=== PATIENT | female | born 1960 | race Caucasian/White ===

== ENCOUNTER 2021-08-22 11:35 | Inpatient (IN) ==
[2021-08-22 12:08] VITALS: BMI 26.5
[2021-08-22] MEDS ORDERED: NS 1,000 ML IV 1,000 ML ONE (12:41)
[2021-08-22] MEDS: NS 1,000 ML IV 1,000 ML IV SCH ×2 (12:50→21:35)
--- NOTE | 2021-08-22 12:50 | DR.CONSULT ---
CONSULT Consultation for Day of: Date: 08/22/21 Chief Complaint Chief Complaint: Right ankle infection History of Present Illness History of Present Illness: Mrs. Gray is a 61 yeat old female with a right ankle infection. This has been going on for a few days. She denies any trauma or any insect bite. She has some pain but worse with palpation. She had not had any treatment for this. She denies any f/c/n/v/sob/calf pain. The last time the patient ate was 6am. Past Medical History Past Medical History: Anemia and GERD Past Surgical History Surgical History: Hysterectomy Family History Family Medical History: Cancer Social History Does any household member use tobacco: No Alcohol Use: None Review of Systems Constitutional: See HPI Musculoskeletal: Leg Pain (Right ankle with a wound to the medial mal. This has erythema and edema which tracks proximally. Crepitus noted periwound. Draining purulence. Painful on palpation. The wound measures 3.0 cm x 3.0 cm and the base is fibrotic and necrotic. DP and PT pulses are diminished b/l. ) Skin: Wound (Right ankle wound. discussed above) Physical Exam Vital Signs: Temperature 97.4 F Pulse Rate 95 Respiratory Rate 20 Blood Pressure 178/79 O2 Sat by Pulse Oximetry 97 Plan (1) Infection of bone of right ankle: Status: Acute Plan: Mrs. Gray is a 61 yo female with a med mal wound infection. Plan: NPO now. Patient last ate at [address] right ankle and leg stat Recommend abx Patient would benefit from debridement Will discuss the case with Dr. Bingham. Please do not hesitate to contact me questions or concerns [facility] [phone]
--- NOTE | 2021-08-22 12:55 | DR.EXTPAIN ---
HPI Time seen Time Seen by Provider: 08/22/21 12:22 PCP Primary Care Physician: elisha odom Complaint/Symptoms Chief Complaint:: pt states " i was wearing a croc shoes without socks wednesday and i ended up with several blisters on my right foot. they have busted and now they are hurting." she states she saw her pcp this morning and was told to come here to see dr. araujo Self Treatment fo Chief Complaint: none Source History Provided: Patient Mode of arrival Mode of Arrival: Ambulatory Timing Onset of Chief Complaint: 08/20/21 PMH PMH Past Medical History: Yes Past Medical History: Anemia and GERD Past Surgical History: Yes Surgical History: Hysterectomy Past Surgical History Comment: colon surgery Family History History of Family Medical Conditions: Yes Family Medical History: Cancer Social History Does any household member use tobacco: No Alcohol Use: None Do you use any recreational Drugs:: No Lives Where: Home Infectious screening In the last 2 months have you had wt loss of >10#?: NO Have you had fever, night sweats or hemotysis?: No Have you traveled outside the country in the last 6 months?: No Isolation: Standard ROS Review of Systems Constitutional: No Symptoms Reported and See HPI; negative Fever, Weakness and Fatigue Eyes: No Symptoms Reported and See HPI ENTM: No Symptoms Reported and See HPI; negative Nose Discharge and Nose Congestion Respiratoy: No Symptoms Reported and See HPI; negative Moist Cough, Short of Breath and Wheezing Cardiovascular: No Symptoms Reported and See HPI; negative Chest Pain Gastrointestinal/Abdominal: No Symptoms Reported and See HPI; negative Abdominal Pain, Diarrhea and Vomiting Genitourinary: No Symptoms Reported and See HPI; negative Dysuria, Frequency and Hematuria Neurological: No Symptoms Reported and See HPI; negative Headache, Weakness and Dizziness Musculoskeletal: No Symptoms Reported, See HPI, Leg (RIGHT LEG PAIN AND REDNESS.), Ankle (RIGHT ANKLE ABSCESS AND PAIN.) and Foot (RIGHT FOOT SWELLING, REDNESS AND PAIN.) Integumentary: See HPI and Change in Color (REDNESS RT LEG, ANSCESS RIGHT ANKLE AND SWELLING RIGHT FOOT.); negative Juandice Hematologic/Lymphatic: No Symptoms Reported and See HPI; negative Easy Bruising Endocrine: No Symptoms Reported and See HPI; negative Increased Thirst and Increased Urine Psychiatric: No Symptoms Reported and See HPI All Other Systems: Reviewed and Negative PE Vital Signs Vitals: Temperature 97.4 F Pulse Rate 82 Respiratory Rate 17 Blood Pressure 127/62 O2 Sat by Pulse Oximetry 98 General Limitations: No Limitations General Appearance: Alert and In No Apparent Distress Head Head Exam: Normal Inspection Eyes Eye exam: Normal Appearance; negative Scleral Icterus and Conjunctival Injection ENT ENT Exam: Normal Exam, Normal Oropharynx, Normal External Ear Exam and TM's Normal Bilaterally Neck Neck Exam: Normal Inspection and Trachea Midline; negative Tenderness Chest Chest Inspection: Normal Inspection and Symmetric Chest Wall Rise; negative Ten derness Respiratory Respiratory Exam: Normal Lung Sounds Bilat; negative Accessory Muscle Use, Chest Wall Tenderness and Respiratory Distress Respiratory Exam: Bilateral: Clear to Auscultation Cardiovascular Cardiovascular Exam: Regular Rate, Normal Rhythm and Normal Heart Sounds; negative Systolic Murmur and Diastolic Murmur Abdominal Exam Abdominal Exam: Normal Inspection, Normal Bowel Sounds and Soft; negative Tenderness Extremities Extremities Exam: Normal Inspection, Tenderness (RIGHT ANKLE ANSCESS, REDNESS AND SWELLING AND RIGHT LEG TENDERNESS.), Normal Capillary Refill and Edema (SWELLING RIGHT FOOT AND REDNESS.) Back Back Exam: Normal Inspection; negative (R) CVA Tenderness and (L) CVA Tenderness Neurological Neurological Exam: Alert, Oriented X3 and CN II-XII Intact; negative Motor Sensory Deficit Psychiatric Psychiatric Exam: Normal Affect and Normal Mood Skin Skin Exam: Erythema Type of Lesion: Abscess (RIGHT ANKLE ABSCESS.) and Other (RIGHT LEG REDNESS. RT FOOT SWELLING AND REDNESS.) Description: Tenderness and Erythematous MDM Differential Diagnosis Differential Diagnosis: Other (CELLULITIS EIGHT LEG AND FOOT, ABSCESS RIGHT ANKLE.) COURSE Treatment Treatment: SEE ORDERS. Education/Counseling Education/Counseling: Patient Educated On: Diagnosis ROR Labs Reviewed Result Diagrams: 08/22/21 12:46 08/22/21 12:46 Laboratory: 08/22/21 13:19 Foot - Right Wound Gram Stain - Final WBC 14.5 X10^3/uL (3.6-10.0) H 08/22/21 12:46 RBC 4.27 X10^6/uL (3.5-5.4) 08/22/21 12:46 Hgb 10.7 g/dL (12.0-16.0) L 08/22/21 12:46 Hct 33.1 % (36.0-47.0) L 08/22/21 12:46 MCV 77.6 fL (80.0-100.0) L 08/22/21 12:46 MCH 25.0 pg (27.0-34.0) L 08/22/21 12:46 MCHC 32.2 g/dL (33.0-35.0) L 08/22/21 12:46 RDW 23.2 % (11.6-16.5) H 08/22/21 12:46 Plt Count 377 X10^3/uL (150.0-450.0) 08/22/21 12:46 Plt Count Comment Adequate (ADEQUATE) 08/22/21 12:46 MPV 7.9 fL (7.4-11.0) 08/22/21 12:46 Neut % (Auto) 89.5 % (42.0-75.0) H 08/22/21 12:46 Lymph % (Auto) 6.5 % (21.0-51.0) L 08/22/21 12:46 [place] % (Auto) 2.8 % (0.0-13.0) 08/22/21 12:46 Eos % (Auto) 0.0 % (0.9-2.9) L 08/22/21 12:46 Baso % (Auto) 1.2 % (0.2-1.0) H 08/22/21 12:46 Neut # (Auto) 13.0 x10^3/uL (2.2-4.8) H 08/22/21 12:46 Lymph # (Auto) 0.9 X10^3/uL (1.3-2.9) L 08/22/21 12:46 [place] # (Auto) 0.4 x10^3/uL (0.3-0.8) 08/22/21 12:46 Eos # (Auto) 0.0 x10^3/uL (0.0-0.2) 08/22/21 12:46 Baso # (Auto) 0.2 X10^3/uL (0.0-0.1) H 08/22/21 12:46 Absolute Nucleated RBC 0.0 /100WBC 08/22/21 12:46 Total Counted 100 08/22/21 12:46 Neutrophils % (Manual) 87 % (39-76) H 08/22/21 12:46 Lymphocytes % (Manual) 8 % (13-43) L 08/22/21 12:46 Monocytes % (Manual) 5 % (4-9) 08/22/21 12:46 Plt Morphology Comment Normal (NORMAL) 08/22/21 12:46 RBC Morphology Abnormal (NORMAL) A 08/22/21 12:46 Hypochromasia Slight A 08/22/21 12:46 Anisocytosis 2+ A 08/22/21 12:46 Microcytosis Slight A 08/22/21 12:46 Sodium 140 mmol/L (136-145) 08/22/21 12:46 Corrected Sodium 140 mmol/L (136-145) 08/22/21 12:46 Potassium 2.9 mmol/L (3.5-5.1) L* 08/22/21 12:46 Chloride 101 mmol/L (98-107) 08/22/21 12:46 Carbon Dioxide 30.8 mmol/L (21-32) 08/22/21 12:46 BUN 15 mg/dL (7-18) 08/22/21 12:46 Creatinine 0.62 mg/dL (0.55-1.02) 08/22/21 12:46 Est GFR (MDRD) Af Amer > 60 (>60) 08/22/21 12:46 Est GFR (MDRD) Non-Af > 60 (>60) 08/22/21 12:46 Glucose 114 mg/dL (65-99) H 08/22/21 12:46 Hemoglobin A1c 5.5 % 08/22/21 12:46 Calcium 9.2 mg/dL (8.5-10.1) 08/22/21 12:46 Corrected Calcium 10.0 mg/dL (8.5-10.1) 08/22/21 12:46 Total Bilirubin 0.40 mg/dL (0.2-1.0) 08/22/21 12:46 AST 15 Units/L (15-37) 08/22/21 12:46 ALT 35 Units/L (12-78) 08/22/21 12:46 Alkaline Phosphatase 78 Units/L (46-116) 08/22/21 12:46 Total Protein 7.7 g/dL (6.4-8.2) 08/22/21 12:46 Albumin 3.0 g/dL (3.4-5.0) L 08/22/21 12:46 Globulin 4.7 g/dL (2.5-4.5) H 08/22/21 12:46 Albumin/Globulin Ratio 0.6 Ratio (1.1-2.1) L 08/22/21 12:46 SARS CoV-2 RNA Rapid VLADISLAV Negative (NEGATIVE) 08/22/21 13:19 Tissue Pathology To follow 08/22/21 16:05 EKG Rate: 81 Rhythm: PVCs Block: None Hypertrophy: LAE ST: Normal and Nonsp Opioid Opioid Risk Tool Age ([place] box if 16-45): No History of Preadolescent Sexual Abuse: No Total: 0 Total Score Risk Category: Low Risk Copyright: Lit CABA predicting aberrant behaviors Instructions Forms: [facility]
[2021-08-22 13:01] LABS: BASOPHILS # (AUTO) 0.2 X10^3/uL (0.0-0.1); BASOPHILS % (AUTO) 1.2 % (0.2-1.0); HEMATOCRIT 33.1 % (36.0-47.0); HEMOGLOBIN 10.7 g/dL (12.0-16.0); LYMPHOCYTES # (AUTO) 0.9 X10^3/uL (1.3-2.9); LYMPHOCYTES % (AUTO) 6.5 % (21.0-51.0); MEAN CORPUSCULAR HGB CONC 32.2 g/dL (33.0-35.0); MEAN CORPUSCULAR VOLUME 77.6 fL (80.0-100.0); MEAN PLATELET VOLUME 7.9 fL (7.4-11.0); MONOCYTES # (AUTO) 0.4 x10^3/uL (0.3-0.8); MONOCYTES % (AUTO) 2.8 % (0.0-13.0); NEUTROPHILS % (AUTO) 89.5 % (42.0-75.0); PLATELET COUNT 377 X10^3/uL (150.0-450.0); RED BLOOD COUNT 4.27 X10^6/uL (3.5-5.4); RED CELL DISTRIBUTION WIDTH 23.2 % (11.6-16.5); WHITE BLOOD COUNT 14.5 X10^3/uL (3.6-10.0)
[2021-08-22 13:10] LABS: ALANINE AMINOTRANSFERASE 35 Units/L (12-78); ALKALINE PHOSPHATASE 78 Units/L (46-116); ASPARTATE AMINO TRANSFERASE 15 Units/L (15-37); BLOOD UREA NITROGEN 15 mg/dL (7-18); CALCIUM 9.2 mg/dL (8.5-10.1); CARBON DIOXIDE 30.8 mmol/L (21-32); CHLORIDE 101 mmol/L (98-107); COR NA(FOR HYPERGLY) 140 mmol/L (136-145); CREATININE 0.62 mg/dL (0.55-1.02); SODIUM 140 mmol/L (136-145); TOTAL PROTEIN 7.7 g/dL (6.4-8.2); eGFR NON BLACK RACES > 60 (>60)
[2021-08-22 13:28] LABS: ANISOCYTOSIS 2+; HYPOCHROMASIA SLIGHT; MICROCYTOSIS SLIGHT; PLATELET MORPHOLOGY COMMENT NORMAL (NORMAL)
[2021-08-22] MEDS ORDERED: VANCOMYCIN IV *PREMIX 1 G/200 ML BAG 1 G/200 ML PIGGYBACK IV ONE ×2 (13:36→13:45)
--- NOTE | 2021-08-22 13:36 | RAD ---
HISTORYPRE OP.brFOOT ULCER Relevant Clinical InformationSTUDYCHEST, 1 VIEWCOMPARISONNoneFINDINGSThe trachea is midline. The cardiac silhouette is unremarkable. The lungs are clear without focal infiltrate or effusion. The bony thorax is unremarkable.IMPRESSIONNo acute cardiopulmonary findings .Electronically signed by: PAKO JOINER (Aug 22, 2021 13:34:14)
[2021-08-22] MEDS ORDERED: KLOR-CON PO ONE (13:40)
[2021-08-22] MEDS ORDERED: KLOR-CON ONE (13:45)
--- NOTE | 2021-08-22 14:06 | CT ---
HISTORYRIGHT ANKLE ABCESS, CELLULITUSSTUDYLOWER EXT WITH CONCOMPARISONNoneTECHNIQUECT right ankle without contrast with sagittal and coronal reformats.Dose reduction techniques including Automated Exposure Control (AEC) and adjustment of mA and kV were utilized.FINDINGSThere is moderate soft tissue swelling about the ankle and extending over the dorsum of the foot. No peripherally enhancing collection is identified to suggest abscess. No acute fracture, malalignment, or aggressive osseous lesion. The joint spaces appear preserved. No CT evidence of osteomyelitis.IMPRESSIONModerate soft tissue swelling about the ankle and foot without abscess identified. This may represent cellulitis or could be related to a systemic process.Electronically signed by: Blue Mercer (Aug 22, 2021 14:04:21)
[2021-08-22] MEDS ORDERED: REGLAN INJ 10 MG VIAL IVP ONE (14:19)
[2021-08-22] MEDS ORDERED: PEPCID 20 MG IV PREMIX* 20 MG/50 ML BAG IV ONE (14:19)
[2021-08-22] MEDS ORDERED: PEPCID 20 MG IV PREMIX* 50 ML IV ONE (14:20)
[2021-08-22] MEDS ORDERED: REGLAN INJ 10 MG VIAL ONE (14:20)
[2021-08-22] MEDS ORDERED: ZOSYN VIAL 3.375 GRAMS 3.375 G in NS 100 ML IV + SPIKE MINIBAG* 100 ML IV ONE (14:31)
[2021-08-22] MEDS ORDERED: ZOSYN VIAL 3.375 GRAMS IV ONE (14:37)
[2021-08-22] MEDS ORDERED: NS 100 ML IV + SPIKE MINIBAG* 100 ML IV ONE (14:37)
[2021-08-22] MEDS ORDERED: BETADINE SOLN ONE (15:09)
[2021-08-22] MEDS ORDERED: MARCAINE 0.25% INJ ONE (15:10)
[2021-08-22] MEDS ORDERED: LR 1,000 ML IV 1,000 ML IV ONE ×2 (15:16→17:18)
--- NOTE | 2021-08-22 15:16 | DR.PREOPN ---
Pre-op Note Laboratory and Diagnositics Result Diagrams: 08/22/21 12:46 08/22/21 12:46 Summary: I have reviewed the procedure, it benefits and potential risks and complications with the patient and his/her questions have been answered. Patient desires to proceed with procedure. Consent signed and on chart. I have discussed with patient CT scan. no deep abscess however has abscess of superficial leg and ankle in fascial plan with nec fas. will need decompression to prevent deep extension with need for deep fasciotomy. patient will likely need further washout either this weekend or early next week.
[2021-08-22] MEDS ORDERED: KETALAR ONE (15:24)
[2021-08-22] MEDS ORDERED: DIPRIVAN VIAL ONE (15:24)
[2021-08-22] MEDS ORDERED: VERSED ONE (15:24)
[2021-08-22] MEDS ORDERED: DILAUDID INJ ONE (17:18)
[2021-08-22] MEDS: LR 1,000 ML IV 1,000 ML IV SCH (17:46)
[2021-08-22] MEDS ORDERED: PHARMACY CONSULT - VANCOMYCIN XX SCH (18:00)
[2021-08-22] MEDS: ZOSYN VIAL 3.375 GRAMS 3.375 G in NS 100 ML IV + SPIKE MINIBAG* 100 ML IV SCH (21:35)
[2021-08-22] MEDS: DILAUDID INJ IVP PRN (23:24)
[2021-08-23] MEDS: NS 1,000 ML IV 1,000 ML IV SCH (05:22)
[2021-08-23] MEDS: ZOSYN VIAL 3.375 GRAMS 3.375 G in NS 100 ML IV + SPIKE MINIBAG* 100 ML IV SCH ×3 (05:22→22:35)
[2021-08-23] MEDS: DILAUDID INJ IVP PRN ×4 (05:22→21:00)
[2021-08-23 06:40] LABS: BASOPHILS # (AUTO) 0.1 X10^3/uL (0.0-0.1); BASOPHILS % (AUTO) 0.5 % (0.2-1.0); EOSINOPHILS # (AUTO) 0.2 x10^3/uL (0.0-0.2); EOSINOPHILS % (AUTO) 1.7 % (0.9-2.9); HEMATOCRIT 27.8 % (36.0-47.0); LYMPHOCYTES # (AUTO) 1.9 X10^3/uL (1.3-2.9); LYMPHOCYTES % (AUTO) 17.6 % (21.0-51.0); MEAN CORPUSCULAR HEMOGLOBIN 25.5 pg (27.0-34.0); MEAN CORPUSCULAR HGB CONC 32.3 g/dL (33.0-35.0); MEAN CORPUSCULAR VOLUME 78.9 fL (80.0-100.0); MEAN PLATELET VOLUME 8.1 fL (7.4-11.0); MONOCYTES # (AUTO) 0.8 x10^3/uL (0.3-0.8); MONOCYTES % (AUTO) 7.2 % (0.0-13.0); PLATELET COUNT 288 X10^3/uL (150.0-450.0); RED BLOOD COUNT 3.52 X10^6/uL (3.5-5.4); RED CELL DISTRIBUTION WIDTH 23.3 % (11.6-16.5); WHITE BLOOD COUNT 10.9 X10^3/uL (3.6-10.0)
[2021-08-23 06:50] LABS: BLOOD UREA NITROGEN 12 mg/dL (7-18); CALCIUM 8.6 mg/dL (8.5-10.1); CARBON DIOXIDE 30.6 mmol/L (21-32); CHLORIDE 106 mmol/L (98-107); CREATININE 0.49 mg/dL (0.55-1.02); MAGNESIUM 2.1 mg/dL (1.7-2.9); SODIUM 141 mmol/L (136-145); eGFR NON BLACK RACES > 60 (>60)
[2021-08-23 07:03] LABS: ANISOCYTOSIS 1+; HYPOCHROMASIA SLIGHT; MICROCYTOSIS 1+; PLATELET MORPHOLOGY COMMENT NORMAL (NORMAL)
[2021-08-23] MEDS: VANCOMYCIN IV *PREMIX 1 G/200 ML BAG 1 G/200 ML PIGGYBACK IV SCH ×2 (09:07→21:02)
[2021-08-23] MEDS: LR 1,000 ML IV 1,000 ML IV SCH ×2 (09:17→22:37)
[2021-08-23 09:26] LABS: BILIRUBIN,URINE NEGATIVE (NEGATIVE); BLOOD/HEMOGLOBIN,URINE 2+ (NEGATIVE); GLUCOSE, URINE NEGATIVE (NEGATIVE); KETONES,URINE NEGATIVE (NEGATIVE); LEUKOCYTE ESTERASE ,URINE 3+ (NEGATIVE); NITRITES,URINE NEGATIVE (NEGATIVE); PROTEIN,URINE 2+ (NEGATIVE); UROBILINOGEN,URINE NORMAL (NORMAL)
[2021-08-23 09:29] LABS: APPEARANCE,URINE HAZY (CLEAR); COLOR,URINE YELLOW (YELLOW)
[2021-08-23 09:34] LABS: AMORPHOUS SEDIMENT,UR 1+ /HPF (NEGATIVE); BACTERIA,URINE TRACE /HPF (NEGATIVE); GRANULAR CASTS,URINE RARE /LPF (NEGATIVE); HYALINE CASTS, URINE FEW /LPF (NEGATIVE); MUCUS,URINE RARE /HPF (NEGATIVE); SQUAMOUS EPITHELIAL CELL,UR FEW /HPF (NEGATIVE); TRANSITIONAL EPI CELLS,URINE RARE /HPF (NEGATIVE)
[2021-08-23] MEDS: PERCOCET TAB 5/325 MG PO PRN (12:18)
[2021-08-23] MEDS: ZOFRAN INJ 4 MG VIAL IVP PRN (12:21)
[2021-08-23] MEDS ORDERED: MAGNESIUM SULFATE 1 GRAM/100 mL PREMIX 1 G/100 ML BAG IV PRN (16:11)
[2021-08-23] MEDS ORDERED: MICRO K EXTEN CAP 10 MEQ PO PRN (16:11)
[2021-08-23] MEDS ORDERED: POTASSIUM CHL 40 MEQ/NS 0.45% 500 ML IV PRN (16:11)
[2021-08-23] MEDS ORDERED: K-RIDER 10 MEQ/NS 100 ML 10 MEQ/100 ML BAG IV PRN (16:11)
[2021-08-23] MEDS ORDERED: KLOR-CON PO PRN (16:11)
[2021-08-23] MEDS ORDERED: POTASSIUM CHLORIDE LIQ 20 MEQ UDC PO PRN (16:11)
[2021-08-23] MEDS ORDERED: POTASSIUM CHL 60 MEQ/NS 0.45% 500 ML IV PRN (16:11)
[2021-08-23] MEDS: K-DUR TAB 20 MEQ PO PRN (18:18)
--- NOTE | 2021-08-23 19:03 | DR.H&P ---
H&P History & Physical for Day of: H&P Date: 08/22/21 Chief Complaint Chief Complaint: Swelling and redness to right medial leg consistent with infection, possible fasciitis . Allergies Allergies Allergy/AdvReac Type Severity Reaction Status Date / Time Penicillins Allergy Verified 08/22/21 15:11 History of Present Illness History of Present Illness: As above several day history of increasing redness and pain right medial foot. Denies trauma. No history of diabetes Past Medical History Past Medical History: Anemia and GERD Past Surgical History Surgical History: Abdominal Surgery and Hysterectomy Additional Surgical History: Hx of colectomy for bowel obstruction in the past , not malignant Family History Family Medical History: Cancer and [place] Social History Does patient currently use any type of tobacco product: No (Quit in 2017) Have you used tobacco products in the last 12 months: No Type of Tobacco Use: None Does any household member use tobacco: No Alcohol Use: None Drug Use: None Medications Home Medications: Penicillins Allergy (Verified 08/22/21 15:11) Labs Result Diagrams: 08/23/21 06:17 08/23/21 06:17 Labs: 08/22/21 16:05 Ankle - Right Wound Gram Stain - Final 08/22/21 16:05 Ankle - Right Wound Culture - Preliminary 08/22/21 13:19 Foot - Right Wound Gram Stain - Final 08/22/21 13:19 Foot - Right Wound Culture - Preliminary Laboratory WBC 10.9 X10^3/uL (3.6-10.0) H 08/23/21 06:17 RBC 3.52 X10^6/uL (3.5-5.4) 08/23/21 06:17 Hgb 9.0 g/dL (12.0-16.0) L 08/23/21 06:17 Hct 27.8 % (36.0-47.0) L 08/23/21 06:17 MCV 78.9 fL (80.0-100.0) L 08/23/21 06:17 MCH 25.5 pg (27.0-34.0) L 08/23/21 06:17 MCHC 32.3 g/dL (33.0-35.0) L 08/23/21 06:17 RDW 23.3 % (11.6-16.5) H 08/23/21 06:17 Plt Count 288 X10^3/uL (150.0-450.0) 08/23/21 06:17 Plt Count Comment Adequate (ADEQUATE) 08/23/21 06:17 MPV 8.1 fL (7.4-11.0) 08/23/21 06:17 Neut % (Auto) 73.0 % (42.0-75.0) 08/23/21 06:17 Lymph % (Auto) 17.6 % (21.0-51.0) L 08/23/21 06:17 [place] % (Auto) 7.2 % (0.0-13.0) 08/23/21 06:17 Eos % (Auto) 1.7 % (0.9-2.9) 08/23/21 06:17 Baso % (Auto) 0.5 % (0.2-1.0) 08/23/21 06:17 Neut # (Auto) 8.0 x10^3/uL (2.2-4.8) H 08/23/21 06:17 Lymph # (Auto) 1.9 X10^3/uL (1.3-2.9) 08/23/21 06:17 [place] # (Auto) 0.8 x10^3/uL (0.3-0.8) 08/23/21 06:17 Eos # (Auto) 0.2 x10^3/uL (0.0-0.2) 08/23/21 06:17 Baso # (Auto) 0.1 X10^3/uL (0.0-0.1) 08/23/21 06:17 Absolute Nucleated RBC 0.1 /100WBC 08/23/21 06:17 Total Counted 100 08/22/21 12:46 Neutrophils % (Manual) 87 % (39-76) H 08/22/21 12:46 Lymphocytes % (Manual) 8 % (13-43) L 08/22/21 12:46 Monocytes % (Manual) 5 % (4-9) 08/22/21 12:46 Plt Morphology Comment Normal (NORMAL) 08/23/21 06:17 RBC Morphology Abnormal (NORMAL) A 08/23/21 06:17 Hypochromasia Slight A 08/23/21 06:17 Anisocytosis 1+ A 08/23/21 06:17 Microcytosis 1+ A 08/23/21 06:17 Sodium 141 mmol/L (136-145) 08/23/21 06:17 Corrected Sodium TNP 08/23/21 06:17 Potassium 3.7 mmol/L (3.5-5.1) 08/23/21 06:17 Chloride 106 mmol/L (98-107) 08/23/21 06:17 Carbon Dioxide 30.6 mmol/L (21-32) 08/23/21 06:17 BUN 12 mg/dL (7-18) 08/23/21 06:17 Creatinine 0.49 mg/dL (0.55-1.02) L 08/23/21 06:17 Est GFR (MDRD) Af Amer > 60 (>60) 08/23/21 06:17 Est GFR (MDRD) Non-Af > 60 (>60) 08/23/21 06:17 Glucose 110 mg/dL (65-99) H 08/23/21 06:17 Hemoglobin A1c 5.5 % 08/22/21 12:46 Calcium 8.6 mg/dL (8.5-10.1) 08/23/21 06:17 Corrected Calcium 10.0 mg/dL (8.5-10.1) 08/22/21 12:46 Magnesium 2.1 mg/dL (1.7-2.9) 08/23/21 06:17 Total Bilirubin 0.40 mg/dL (0.2-1.0) 08/22/21 12:46 AST 15 Units/L (15-37) 08/22/21 12:46 ALT 35 Units/L (12-78) 08/22/21 12:46 Alkaline Phosphatase 78 Units/L (46-116) 08/22/21 12:46 Total Protein 7.7 g/dL (6.4-8.2) 08/22/21 12:46 Albumin 3.0 g/dL (3.4-5.0) L 08/22/21 12:46 Globulin 4.7 g/dL (2.5-4.5) H 08/22/21 12:46 Albumin/Globulin Ratio 0.6 Ratio (1.1-2.1) L 08/22/21 12:46 Specimen Type Clean catch urine 08/23/21 09:15 Urine Color Yellow (YELLOW) 08/23/21 09:15 Urine Appearance Hazy (CLEAR) 08/23/21 09:15 Urine pH 5.0 (5.0 - 8.0) 08/23/21 09:15 Ur Specific [place] 1.025 (1.000-1.030) 08/23/21 09:15 Urine Protein 2+ (NEGATIVE) 08/23/21 09:15 Urine Glucose (UA) Negative (NEGATIVE) 08/23/21 09:15 Urine Ketones Negative (NEGATIVE) 08/23/21 09:15 Urine Occult Blood 2+ (NEGATIVE) 08/23/21 09:15 Urine Nitrite Negative (NEGATIVE) 08/23/21 09:15 Urine Bilirubin Negative (NEGATIVE) 08/23/21 09:15 Urine Urobilinogen Normal (NORMAL) 08/23/21 09:15 Ur Leukocyte Esterase 3+ (NEGATIVE) 08/23/21 09:15 Urine RBC 5-10 /HPF (0-3) A 08/23/21 09:15 Urine WBC 20-30 /HPF (0-5) A 08/23/21 09:15 Ur Squamous Epith Cells Few /HPF (NEGATIVE) 08/23/21 09:15 Ur Transition Epith Cell Rare /HPF (NEGATIVE) 08/23/21 09:15 Amorphous Sediment 1+ /HPF (NEGATIVE) 08/23/21 09:15 Urine Bacteria Trace /HPF (NEGATIVE) 08/23/21 09:15 Hyaline Casts Few /LPF (NEGATIVE) 08/23/21 09:15 Granular Casts Rare /LPF (NEGATIVE) 08/23/21 09:15 Urine Mucus Rare /HPF (NEGATIVE) 08/23/21 09:15 Ur Culture Indicated? Yes/culture set up 08/23/21 09:15 SARS CoV-2 RNA Rapid VLADISLAV Negative (NEGATIVE) 08/22/21 13:19 Tissue Pathology To follow 08/22/21 16:05 Review of Systems Constitutional: Sweats, Weakness, Malaise and Other; denies No Symptoms Reported, Fever and Chills Eyes: No Symptoms Reported ENT: No Symptoms Reported Respiratory: No Symptoms Reported Cardiovascular: No Symptoms Reported Gastrointestinal: No Symptoms Reported Genitourinary: No Symptoms Reported Musculoskeletal: Leg Pain (Right ankle with a wound to the medial mal. This has erythema and edema which tracks proximally. Crepitus noted periwound. Draining purulence. Painful on palpation. The wound measures 3.0 cm x 3.0 cm and the base is fibrotic and necrotic. DP and PT pulses are diminished b/l. ) Skin: Wound (Right ankle wound. discussed above) Physical Exam Vital Signs: Temperature 97.9 F Pulse Rate [Left Radial] 76 Pulse Rate 82 Respiratory Rate 18 Blood Pressure [Left Arm] 119/55 Blood Pressure 127/62 O2 Sat by Pulse Oximetry 100 Oriented: Normal, Time, Person and Place Eyes: Normal Ear: Normal Nose: Normal Throat: Normal Respiratory: Clear Throughout Cardiovascular: Normal : Normal Auscultation: Bowel Sounds: Normal Palpation: Normal Tenderness: Normal Skin: Wound (redness, swelling , purulent drainage of wound medial right distal leg masuring 12x5 cm ) Musculoskeletal: Normal Psychiatric: Normal Mood Description: Calm and Anxious Speech Pattern: Clear Assessment/Plan (1) Infectious fasciitis: Status: Acute Plan: Podiatrists to debride wound and place wound vacuum, IV antibiotics Review H&P Reviewed: Yes Patient was examined?: Yes
--- NOTE | 2021-08-23 19:27 | NOTE.SOAP ---
Soap Note Note for Day of Date of Exam: 08/23/21 Subjective Data Subjective Data: Doing well after debasement of right leg wound Objective Data Temperature: 97.9 F Pulse Rate: 76 Respiratory Rate: 20 Blood Pressure: 119/55 O2 Sat by Pulse Oximetry: 100 Objective Data: vitals stable, no complaints, wound vacuum in place and covering wound Assessment Assessment: Cellulitis/ fasciitis righgnleg Plan Plan: Continue IV antibiotics. Will change wound vacuum tomorrow.
[2021-08-24] MEDS: LR 1,000 ML IV 1,000 ML IV SCH ×3 (01:10→23:40)
[2021-08-24] MEDS: PERCOCET TAB 5/325 MG PO PRN ×2 (03:48→14:09)
[2021-08-24] MEDS: ZOSYN VIAL 3.375 GRAMS 3.375 G in NS 100 ML IV + SPIKE MINIBAG* 100 ML IV SCH ×3 (05:06→22:50)
[2021-08-24 06:08] LABS: BLOOD UREA NITROGEN 11 mg/dL (7-18); CALCIUM 8.4 mg/dL (8.5-10.1); CARBON DIOXIDE 29.5 mmol/L (21-32); CHLORIDE 105 mmol/L (98-107); CREATININE 0.42 mg/dL (0.55-1.02); SODIUM 142 mmol/L (136-145); eGFR NON BLACK RACES > 60 (>60)
[2021-08-24 06:10] LABS: BASOPHILS % (AUTO) 0.2 % (0.2-1.0); EOSINOPHILS # (AUTO) 0.2 x10^3/uL (0.0-0.2); EOSINOPHILS % (AUTO) 1.8 % (0.9-2.9); HEMOGLOBIN 8.3 g/dL (12.0-16.0); LYMPHOCYTES # (AUTO) 1.2 X10^3/uL (1.3-2.9); LYMPHOCYTES % (AUTO) 10.7 % (21.0-51.0); MEAN CORPUSCULAR HEMOGLOBIN 25.8 pg (27.0-34.0); MEAN CORPUSCULAR HGB CONC 32.1 g/dL (33.0-35.0); MEAN CORPUSCULAR VOLUME 80.4 fL (80.0-100.0); MEAN PLATELET VOLUME 8.1 fL (7.4-11.0); MONOCYTES # (AUTO) 0.7 x10^3/uL (0.3-0.8); MONOCYTES % (AUTO) 6.3 % (0.0-13.0); NEUTROPHILS # (AUTO) 9.1 x10^3/uL (2.2-4.8); PLATELET COUNT 257 X10^3/uL (150.0-450.0); RED BLOOD COUNT 3.24 X10^6/uL (3.5-5.4); RED CELL DISTRIBUTION WIDTH 22.7 % (11.6-16.5); WHITE BLOOD COUNT 11.3 X10^3/uL (3.6-10.0)
[2021-08-24 07:01] LABS: PLATELET MORPHOLOGY COMMENT NORMAL (NORMAL)
[2021-08-24 07:02] LABS: ANISOCYTOSIS 1+
[2021-08-24 07:03] LABS: HYPOCHROMASIA SLIGHT; MICROCYTOSIS SLIGHT
[2021-08-24] MEDS: VANCOMYCIN IV *PREMIX 1 G/200 ML BAG 1 G/200 ML PIGGYBACK IV SCH ×2 (09:12→21:51)
[2021-08-24] MEDS: DILAUDID INJ IVP PRN ×3 (09:12→22:40)
[2021-08-24] MEDS ORDERED: DILAUDID INJ IVP ONE (10:45)
[2021-08-24] MEDS ORDERED: HYDROGEN PEROXIDE 3% ONE (10:50)
[2021-08-24] MEDS ORDERED: STERILE WATER IRRIGATION IR ONE (10:50)
[2021-08-24] MEDS ORDERED: PROTONIX TAB 40 MG PO ONE (12:07)
--- NOTE | 2021-08-24 12:07 | NOTE.SOAP ---
Soap Note Note for Day of Date of Exam: 08/24/21 Subjective Data Subjective Data: In regards to her wound of the right leg , that is doing well. She is afebrile and the wound was observed and is markedly improved. Prior to this presentation she complained of rash and she also had evaluation for possible inflammatory diseases such as rheumatoid arthritis which to this point has been negative. Today she has red nodules over both proximal tibial services with no obvious cellulitis and he has blood per rectum and hemoglobin has declined 8.3 from over 10 on admission. In addition she has been anemic in the recent past but no endoscopy was done . Objective Data Temperature: 97.7 F Pulse Rate: 64 Respiratory Rate: 18 Blood Pressure: 128/61 O2 Sat by Pulse Oximetry: 100 Objective Data: Wound vacuum changed at the bedside. Cellulitis resolved. No significant drainage. All pulses intact. Has some reddish appearing nodules over both tibial surfaces. Stool is heme positive. Abdomen is soft and benign. No prior history of EGD or colonoscopy. Assessment Assessment: Fasciitis right leg/ cellulitis ,improving. Positive stool with drop in hemoglobin .Possible autoimmune component. Patient will need further rheumatological evaluation as an outpatient Plan Plan: continue IV antibiotics. Play an upper and lower endoscopy tomorrow. Bowel prep tonight.
[2021-08-24] MEDS ORDERED: CITROMA PO ONE ×2 (12:09→20:00)
[2021-08-24] MEDS: K-DUR TAB 20 MEQ PO PRN (14:08)
[2021-08-24 21:12] LABS: CREATININE 0.5 mg/dL (0.55-1.02); VANCOMYCIN,TROUGH 8.4 ug/mL (15-20)
[2021-08-24] MEDS ORDERED: VANCOMYCIN HCL 750 MG in NS 250 ML IV 250 ML IV SCH (22:00)
[2021-08-24] MEDS: ZOFRAN INJ 4 MG VIAL IVP PRN (22:22)
[2021-08-25] MEDS: DILAUDID INJ IVP PRN ×4 (03:15→22:18)
[2021-08-25 06:14] LABS: BASOPHILS % (AUTO) 0.3 % (0.2-1.0); EOSINOPHILS % (AUTO) 0.3 % (0.9-2.9); HEMATOCRIT 27.1 % (36.0-47.0); HEMOGLOBIN 8.4 g/dL (12.0-16.0); LYMPHOCYTES % (AUTO) 6.2 % (21.0-51.0); MEAN CORPUSCULAR HEMOGLOBIN 24.9 pg (27.0-34.0); MEAN CORPUSCULAR HGB CONC 30.8 g/dL (33.0-35.0); MEAN CORPUSCULAR VOLUME 80.6 fL (80.0-100.0); MEAN PLATELET VOLUME 8.3 fL (7.4-11.0); MONOCYTES # (AUTO) 0.6 x10^3/uL (0.3-0.8); MONOCYTES % (AUTO) 3.8 % (0.0-13.0); NEUTROPHILS % (AUTO) 89.4 % (42.0-75.0); PLATELET COUNT 334 X10^3/uL (150.0-450.0); RED BLOOD COUNT 3.36 X10^6/uL (3.5-5.4); RED CELL DISTRIBUTION WIDTH 22.6 % (11.6-16.5); WHITE BLOOD COUNT 15.7 X10^3/uL (3.6-10.0)
[2021-08-25 06:37] LABS: BLOOD UREA NITROGEN 9 mg/dL (7-18); CALCIUM 8.5 mg/dL (8.5-10.1); CARBON DIOXIDE 34.8 mmol/L (21-32); CHLORIDE 101 mmol/L (98-107); COR NA(FOR HYPERGLY) 141 mmol/L (136-145); CREATININE 0.44 mg/dL (0.55-1.02); SODIUM 141 mmol/L (136-145); eGFR NON BLACK RACES > 60 (>60)
[2021-08-25 07:07] LABS: ANISOCYTOSIS 2+; HYPOCHROMASIA SLIGHT; PLATELET MORPHOLOGY COMMENT NORMAL (NORMAL)
[2021-08-25] MEDS ORDERED: FLEET ENEMA ADULT PR ONE (08:10)
[2021-08-25] MEDS: VANCOMYCIN IV *PREMIX 750 mg/150 ML BAG 750 MG/150 ML PIGGYBACK IV SCH ×3 (09:00→23:13)
[2021-08-25] MEDS: PROTONIX TAB 40 MG PO SCH (09:11)
[2021-08-25] MEDS: LR 1,000 ML IV 1,000 ML IV SCH (11:45)
[2021-08-25] MEDS ORDERED: D5 LR 1,000 ML 1,000 ML IV ONE (13:09)
[2021-08-25] MEDS ORDERED: KETALAR ONE (13:27)
[2021-08-25] MEDS ORDERED: XYLOCAINE 2 % (PLAIN) ONE (13:27)
[2021-08-25] MEDS ORDERED: DIPRIVAN VIAL 20 ML ONE (13:29)
[2021-08-25] MEDS ORDERED: GLUCAGEN ONE (13:44)
--- NOTE | 2021-08-25 14:17 | OR.IMMED ---
IMMEDIATE POST-OP NOTE Immediate Post-Op Note Pre-Op Diagnosis: blood per rectum Post-Op Diagnosis: non-specific colitis of the sigmoid colon Procedure: flexible colonoscopy and biopsy x 4 od sigmoid colon Description of Procedure: see operative summary Surgeon/Acute Care Registered Nurse: Zachery Findings: moderate non -specific inflammation of sigmoid colon and mild sigmoid diverticulitis with blood in some of the diverticuli Specimens Removed: biopsy x 4 sigmoid colon Estimated Blood Loss: minimal Drains: NONE Complications: none Progress Notes: To floor probably d/c home later today Condition: Stable Final Diagnosis: as above
[2021-08-25] MEDS: ZOSYN VIAL 3.375 GRAMS 3.375 G in NS 100 ML IV + SPIKE MINIBAG* 100 ML IV SCH ×2 (14:30→22:06)
--- NOTE | 2021-08-25 18:01 | NOTE.SOAP ---
Soap Note Note for Day of Date of Exam: 08/25/21 Subjective Data Subjective Data: Patient s/p colonoscopy today and had evidence of inflammatory process of sigmoid colon and mild diverticulosis . Wound of right leg had dressing changed and converted to weet to dry dressings . Objective Data Temperature: 98.2 F Pulse Rate: 76 Respiratory Rate: 18 Blood Pressure: 138/63 O2 Sat by Pulse Oximetry: 100 Objective Data: Wound 12 x 5 cm with excellent granulation tissue . Cellulitis resolved. Assessment Assessment: 1) Wound right leg doing well. Will D/C tomorrow on PO Bactrim. Will instruct family on how to dress wound . 2) Inflammation of colon . Is this related to this wound and the nodules of both proximal tibial areas . Patient is seeing a reproducer. Will start po Methylprednisolone Plan Plan: D/C home in AM, Prescriptions for Bactrim D/S , Medrol dose pack, and Percocet
[2021-08-25] MEDS: PERCOCET TAB 5/325 MG PO PRN (19:49)
--- NOTE | 2021-08-25 21:15 | DR.OPNOTE ---
OP NOTE Pre-Op Diagnosis: Blood per rectum Post-Op Diagnosis: nonspecific inflammation/colitis of the sigmoid colon, mild diverticulosis Procedure Date Date Of Procedure: 08/25/21 Procedure: This patient was taken to the endoscopy Suite, placed in the left lateral position and given IV sedation. Time out for the procedure obtained. Flexible colonoscope introduced in the anus and taken all the way to the cecum with some difficulty as there was significant inflammation, edema and a small amount of blood in the sigmoid colon. There was also recognized small number of diverticula of the sigmoid colon with clotted blood in them. On withdrawing the scope from the cecum we only saw the abnormalities as listed above. Biopsy x 4 obtained of the sigmoid colon in the area of edema and sent for permanent pathology. There was no evidence of ulcerative colitis or Crohn's disease or tumor. Anesthesia Comment: MAC Findings: Moderate inflammation and edema of the sigmoid colon with small amount of blood and mild sigmoid diverticulosis Specimen/Pathology: Biopsies of the sigmoid colon x 4 Type of Fluids Used:: Lactated Ringers EBL: 0 cc Complications:: none Needle/Sponge Count:: correct Disposition/Condition: Pt. tolerated procedure without difficulty. Taken to [facility] in stable condition.
[2021-08-25] MEDS ORDERED: PHARMACY COMMENT IV NR (21:30)
[2021-08-25] MEDS ORDERED: PHARMACY COMMENT IV SCH (21:30)
[2021-08-25 22:36] LABS: CREATININE 0.5 mg/dL (0.55-1.02); VANCOMYCIN,TROUGH 16.6 ug/mL (15-20)
[2021-08-26] MEDS: PERCOCET TAB 5/325 MG PO PRN ×3 (04:02→21:35)
[2021-08-26] MEDS: VANCOMYCIN IV *PREMIX 750 mg/150 ML BAG 750 MG/150 ML PIGGYBACK IV SCH ×3 (05:09→21:24)
[2021-08-26 05:49] LABS: BASOPHILS % (AUTO) 0.4 % (0.2-1.0); EOSINOPHILS # (AUTO) 0.1 x10^3/uL (0.0-0.2); EOSINOPHILS % (AUTO) 1.3 % (0.9-2.9); HEMATOCRIT 22.1 % (36.0-47.0); LYMPHOCYTES # (AUTO) 1.1 X10^3/uL (1.3-2.9); LYMPHOCYTES % (AUTO) 11.5 % (21.0-51.0); MEAN CORPUSCULAR HEMOGLOBIN 25.4 pg (27.0-34.0); MEAN CORPUSCULAR HGB CONC 31.9 g/dL (33.0-35.0); MEAN CORPUSCULAR VOLUME 79.8 fL (80.0-100.0); MEAN PLATELET VOLUME 8.1 fL (7.4-11.0); MONOCYTES # (AUTO) 0.7 x10^3/uL (0.3-0.8); NEUTROPHILS # (AUTO) 7.5 x10^3/uL (2.2-4.8); NEUTROPHILS % (AUTO) 79.8 % (42.0-75.0); PLATELET COUNT 245 X10^3/uL (150.0-450.0); RED BLOOD COUNT 2.77 X10^6/uL (3.5-5.4); RED CELL DISTRIBUTION WIDTH 22.4 % (11.6-16.5); WHITE BLOOD COUNT 9.4 X10^3/uL (3.6-10.0)
[2021-08-26 05:57] LABS: ALANINE AMINOTRANSFERASE 20 Units/L (12-78); ALKALINE PHOSPHATASE 45 Units/L (46-116); ASPARTATE AMINO TRANSFERASE 10 Units/L (15-37); BLOOD UREA NITROGEN 10 mg/dL (7-18); CALCIUM 8.1 mg/dL (8.5-10.1); CARBON DIOXIDE 37.3 mmol/L (21-32); CHLORIDE 105 mmol/L (98-107); COR CA(FOR HYPOALB) 9.7 mg/dL (8.5-10.1); COR NA(FOR HYPERGLY) 143 mmol/L (136-145); CREATININE 0.49 mg/dL (0.55-1.02); SODIUM 143 mmol/L (136-145); TOTAL PROTEIN 5.7 g/dL (6.4-8.2); eGFR NON BLACK RACES > 60 (>60)
[2021-08-26] MEDS: ZOSYN VIAL 3.375 GRAMS 3.375 G in NS 100 ML IV + SPIKE MINIBAG* 100 ML IV SCH ×4 (06:08→22:45)
[2021-08-26 06:17] LABS: ANISOCYTOSIS 2+; HYPOCHROMASIA 1+; MICROCYTOSIS SLIGHT; PLATELET MORPHOLOGY COMMENT NORMAL (NORMAL)
[2021-08-26] MEDS: PROTONIX TAB 40 MG PO SCH (08:08)
[2021-08-26] MEDS: MEDROL DOSEPAK 4 MG PER TAB PO NR (08:08)
[2021-08-26] MEDS: DILAUDID INJ IVP PRN ×2 (08:09→17:38)
[2021-08-26] MEDS: ZOFRAN INJ 4 MG VIAL IVP PRN ×2 (08:10→17:38)
[2021-08-26 20:55] LABS: CREATININE 0.55 mg/dL (0.55-1.02); VANCOMYCIN,TROUGH 17.2 ug/mL (15-20)
--- NOTE | 2021-08-26 21:41 | NOTE.SOAP ---
Soap Note Note for Day of Date of Exam: 08/26/21 Subjective Data Subjective Data: Patient has been stable overnight. Wound vac and change to wet to dry dressing. No obvious blood per rectum. Hgb=7. 0 this morning potassium now 4. 0 Objective Data Temperature: 97.9 F Pulse Rate: 77 Respiratory Rate: 17 Blood Pressure: 117/58 O2 Sat by Pulse Oximetry: 97 Objective Data: Abdomen is soft and benign Assessment Assessment: 1) Fasciitis ight leg , continue IV antibiotics daily wet to dry dressing changes 2) Colitis treated with steroids . Hgb dropped to 7 grams Plan Plan: Continue current treatment , Observe Hgb with repeat CBC in AM.
[2021-08-27] MEDS: DILAUDID INJ IVP PRN ×3 (02:10→16:06)
[2021-08-27] MEDS: VANCOMYCIN IV *PREMIX 750 mg/150 ML BAG 750 MG/150 ML PIGGYBACK IV SCH ×2 (05:22→14:03)
[2021-08-27] MEDS: PERCOCET TAB 5/325 MG PO PRN ×2 (05:22→11:49)
[2021-08-27 05:45] LABS: BASOPHILS % (AUTO) 0.3 % (0.2-1.0); EOSINOPHILS % (AUTO) 0.1 % (0.9-2.9); HEMATOCRIT 23.8 % (36.0-47.0); HEMOGLOBIN 7.4 g/dL (12.0-16.0); LYMPHOCYTES # (AUTO) 0.6 X10^3/uL (1.3-2.9); MEAN CORPUSCULAR HEMOGLOBIN 25.4 pg (27.0-34.0); MEAN CORPUSCULAR VOLUME 81.7 fL (80.0-100.0); MEAN PLATELET VOLUME 8.2 fL (7.4-11.0); MONOCYTES # (AUTO) 0.3 x10^3/uL (0.3-0.8); MONOCYTES % (AUTO) 2.9 % (0.0-13.0); NEUTROPHILS # (AUTO) 10.9 x10^3/uL (2.2-4.8); NEUTROPHILS % (AUTO) 91.7 % (42.0-75.0); PLATELET COUNT 278 X10^3/uL (150.0-450.0); RED BLOOD COUNT 2.92 X10^6/uL (3.5-5.4); RED CELL DISTRIBUTION WIDTH 22.5 % (11.6-16.5); WHITE BLOOD COUNT 11.9 X10^3/uL (3.6-10.0)
[2021-08-27 06:02] LABS: PLATELET MORPHOLOGY COMMENT NORMAL (NORMAL)
[2021-08-27 06:03] LABS: ANISOCYTOSIS 2+; HYPOCHROMASIA SLIGHT; MICROCYTOSIS SLIGHT
[2021-08-27 06:25] LABS: BLOOD UREA NITROGEN 10 mg/dL (7-18); CALCIUM 8.5 mg/dL (8.5-10.1); CARBON DIOXIDE 38.5 mmol/L (21-32); CHLORIDE 104 mmol/L (98-107); COR NA(FOR HYPERGLY) 144 mmol/L (136-145); CREATININE 0.49 mg/dL (0.55-1.02); SODIUM 143 mmol/L (136-145); eGFR NON BLACK RACES > 60 (>60)
[2021-08-27] MEDS: ZOSYN VIAL 3.375 GRAMS 3.375 G in NS 100 ML IV + SPIKE MINIBAG* 100 ML IV SCH ×2 (06:49→14:03)
[2021-08-27] MEDS: MEDROL DOSEPAK 4 MG PER TAB PO NR (08:12)
[2021-08-27] MEDS: ZOFRAN INJ 4 MG VIAL IVP PRN ×2 (08:12→16:07)
[2021-08-27] MEDS: PROTONIX TAB 40 MG PO SCH (08:12)
[2021-08-27 15:59] VITALS: BP 134/61
--- NOTE | 2021-08-27 17:40 | W.DIS.FURT ---
Summary of Discharge Discharge Summary of Date Date of Exam: 08/27/21 Admission Date Date of Admission: 08/22/21 Admission Diagnosis Hospital Course: This is a 61 year old female who presented with several day history of skin changes of the right medial leg at the ankle and above. She had been worked up for autoimmune problems which to this point have been negative. She was admitted and placed on IV antibiotics and taken to the operating room by the Podiatry service undergoing extensive debridement of the right leg with the wound measuring 12 x5x 0. 5 cm. She was continued on IV antibiotics and had a wound vacuum in place which was exchanged for wet to dry dressing is on August 25 in preparation for her to be discharged home. She had bright red blood and clots per rectum. Bowel prep and colonoscopy showed inflammation of the sigmoid colon with edema consistent with colitis. No obvious areas to suggest ulcerative colitis or Crohn's disease. Biopsies of this area are pending. Hemoglobin had been greater than 9 G on admission and dropped to 7 G on the day before discharge. It was observed and noted to be 7. 4 on the day of discharge, August 27 2021. She has been on iron and B-12 by mouth previously for workup of anemia. To be discharged home on PO Bactrim one p o BID x 10 days, a Medrol dose pack, and Percocet 5mg tablets, one every six hours. Pain, #30. Her family has been instructed on how to care for the wound with daily wet to dry dressings. She will follow up with me in 1 week. She will follow up with doctor Gladis in one week . She will need ongoing evaluation to determine if she has some type of inflammatory process or autoimmune process going on. Vital Signs: Vital Signs (72 hours) 08/24/21 18:13 08/24/21 18:43 08/24/21 20:00 Temperature 98.4 F Pulse Rate Pulse Rate [Left Radial] 89 Respiratory Rate 16 16 21 Blood Pressure Blood Pressure [Left Arm] 143/65 O2 Sat by Pulse Oximetry 90 L 08/24/21 22:40 08/24/21 23:10 08/25/21 00:00 Temperature 98.5 F Pulse Rate Pulse Rate [Left Radial] 85 Respiratory Rate 18 18 21 Blood Pressure Blood Pressure [Left Arm] 127/61 O2 Sat by Pulse Oximetry 98 08/25/21 03:15 08/25/21 03:45 08/25/21 04:00 Temperature 99.3 F Pulse Rate Pulse Rate [Left Radial] 95 H Respiratory Rate 18 18 20 Blood Pressure Blood Pressure [Left Arm] 130/63 O2 Sat by Pulse Oximetry 93 L 08/25/21 08:00 08/25/21 08:50 08/25/21 09:20 Temperature 98.6 F Pulse Rate Pulse Rate [Left Radial] 88 Respiratory Rate 18 18 18 Blood Pressure Blood Pressure [Left Arm] 134/64 O2 Sat by Pulse Oximetry 100 08/25/21 12:00 08/25/21 14:15 08/25/21 14:30 Temperature 98.5 F 98.2 F 98.2 F Pulse Rate Pulse Rate [Left Radial] 90 80 68 Respiratory Rate 18 18 18 Blood Pressure Blood Pressure [Left Arm] 132/62 136/65 138/63 O2 Sat by Pulse Oximetry 93 L 100 100 08/25/21 14:45 08/25/21 15:00 08/25/21 16:00 Temperature 98.2 F 98.2 F 98.2 F Pulse Rate Pulse Rate [Left Radial] 60 62 76 Respiratory Rate 18 18 18 Blood Pressure Blood Pressure [Left Arm] 132/62 137/65 138/63 O2 Sat by Pulse Oximetry 100 100 100 08/25/21 16:56 08/25/21 17:26 08/25/21 18:23 Temperature 98.2 F Pulse Rate 76 Pulse Rate [Left Radial] Respiratory Rate 18 18 18 Blood Pressure 138/63 Blood Pressure [Left Arm] O2 Sat by Pulse Oximetry 100 08/25/21 19:49 08/25/21 20:00 08/25/21 20:49 Temperature 98.8 F Pulse Rate Pulse Rate [Left Radial] 88 Respiratory Rate 18 20 18 Blood Pressure Blood Pressure [Left Arm] 122/58 O2 Sat by Pulse Oximetry 100 08/25/21 22:18 08/25/21 22:48 08/26/21 00:00 Temperature 97.8 F Pulse Rate Pulse Rate [Left Radial] 62 Respiratory Rate 18 18 18 Blood Pressure Blood Pressure [Left Arm] 95/51 O2 Sat by Pulse Oximetry 95 08/26/21 04:00 08/26/21 04:02 08/26/21 05:02 Temperature 98.6 F Pulse Rate Pulse Rate [Left Radial] 65 Respiratory Rate 20 18 19 Blood Pressure Blood Pressure [Left Arm] 119/53 O2 Sat by Pulse Oximetry 98 08/26/21 07:54 08/26/21 08:09 08/26/21 08:39 Temperature 97.9 F Pulse Rate Pulse Rate [Left Radial] 89 Respiratory Rate 20 18 18 Blood Pressure Blood Pressure [Left Arm] 140/62 O2 Sat by Pulse Oximetry 98 08/26/21 12:00 08/26/21 12:49 08/26/21 13:49 Temperature 97.9 F Pulse Rate Pulse Rate [Left Radial] 79 Respiratory Rate 18 18 18 Blood Pressure Blood Pressure [Left Arm] 143/63 O2 Sat by Pulse Oximetry 100 08/26/21 16:00 08/26/21 17:38 08/26/21 18:08 Temperature 98.5 F Pulse Rate Pulse Rate [Left Radial] 76 Respiratory Rate 18 18 18 Blood Pressure Blood Pressure [Left Arm] 130/60 O2 Sat by Pulse Oximetry 99 08/26/21 20:00 08/26/21 21:35 08/26/21 21:41 Temperature 97.9 F 97.9 F Pulse Rate 77 Pulse Rate [Left Radial] 81 Respiratory Rate 18 20 17 Blood Pressure 117/58 Blood Pressure [Left Arm] 117/58 O2 Sat by Pulse Oximetry 98 97 08/26/21 22:35 08/27/21 00:00 08/27/21 02:10 Temperature 98.0 F Pulse Rate Pulse Rate [Left Radial] 66 Respiratory Rate 20 18 18 Blood Pressure Blood Pressure [Left Arm] 142/62 O2 Sat by Pulse Oximetry 100 08/27/21 02:40 08/27/21 04:00 08/27/21 05:22 Temperature 98.1 F Pulse Rate Pulse Rate [Left Radial] 60 Respiratory Rate 18 18 18 Blood Pressure Blood Pressure [Left Arm] 136/74 O2 Sat by Pulse Oximetry 96 08/27/21 06:22 08/27/21 07:48 08/27/21 08:10 Temperature 97.8 F Pulse Rate Pulse Rate [Left Radial] 77 Respiratory Rate 18 20 18 Blood Pressure Blood Pressure [Left Arm] 172/75 O2 Sat by Pulse Oximetry 98 08/27/21 08:40 08/27/21 11:49 08/27/21 12:00 Temperature 98.2 F Pulse Rate Pulse Rate [Left Radial] 58 L Respiratory Rate 18 18 20 Blood Pressure Blood Pressure [Left Arm] 136/61 O2 Sat by Pulse Oximetry 100 08/27/21 12:49 08/27/21 15:58 08/27/21 16:06 Temperature 98.4 F Pulse Rate Pulse Rate [Left Radial] 66 Respiratory Rate 18 20 20 Blood Pressure Blood Pressure [Left Arm] 134/61 O2 Sat by Pulse Oximetry 100 Labs: Laboratory Last Values WBC 11.9 X10^3/uL (3.6-10.0) H 08/27/21 05:13 RBC 2.92 X10^6/uL (3.5-5.4) L 08/27/21 05:13 Hgb 7.4 g/dL (12.0-16.0) L 08/27/21 05:13 Hct 23.8 % (36.0-47.0) L 08/27/21 05:13 MCV 81.7 fL (80.0-100.0) 08/27/21 05:13 MCH 25.4 pg (27.0-34.0) L 08/27/21 05:13 MCHC 31.0 g/dL (33.0-35.0) L 08/27/21 05:13 RDW 22.5 % (11.6-16.5) H 08/27/21 05:13 Plt Count 278 X10^3/uL (150.0-450.0) 08/27/21 05:13 Plt Count Comment Adequate (ADEQUATE) 08/27/21 05:13 MPV 8.2 fL (7.4-11.0) 08/27/21 05:13 Neut % (Auto) 91.7 % (42.0-75.0) H 08/27/21 05:13 Lymph % (Auto) 5.0 % (21.0-51.0) L 08/27/21 05:13 [place] % (Auto) 2.9 % (0.0-13.0) 08/27/21 05:13 Eos % (Auto) 0.1 % (0.9-2.9) L 08/27/21 05:13 Baso % (Auto) 0.3 % (0.2-1.0) 08/27/21 05:13 Neut # (Auto) 10.9 x10^3/uL (2.2-4.8) H 08/27/21 05:13 Lymph # (Auto) 0.6 X10^3/uL (1.3-2.9) L 08/27/21 05:13 [place] # (Auto) 0.3 x10^3/uL (0.3-0.8) 08/27/21 05:13 Eos # (Auto) 0.0 x10^3/uL (0.0-0.2) 08/27/21 05:13 Baso # (Auto) 0.0 X10^3/uL (0.0-0.1) 08/27/21 05:13 Absolute Nucleated RBC 0.0 /100WBC 08/27/21 05:13 Total Counted 100 08/27/21 05:13 Neutrophils % (Manual) 90 % (39-76) H 08/27/21 05:13 Lymphocytes % (Manual) 6 % (13-43) L 08/27/21 05:13 Monocytes % (Manual) 4 % (4-9) 08/27/21 05:13 Plt Morphology Comment Normal (NORMAL) 08/27/21 05:13 RBC Morphology Abnormal (NORMAL) A 08/27/21 05:13 Hypochromasia Slight A 08/27/21 05:13 Anisocytosis 2+ A 08/27/21 05:13 Microcytosis Slight A 08/27/21 05:13 Sodium 143 mmol/L (136-145) 08/27/21 05:13 Corrected Sodium 144 mmol/L (136-145) 08/27/21 05:13 Potassium 4.0 mmol/L (3.5-5.1) 08/27/21 05:13 Chloride 104 mmol/L (98-107) 08/27/21 05:13 Carbon Dioxide 38.5 mmol/L (21-32) H 08/27/21 05:13 BUN 10 mg/dL (7-18) 08/27/21 05:13 Creatinine 0.49 mg/dL (0.55-1.02) L 08/27/21 05:13 Est GFR (MDRD) Af Amer > 60 (>60) 08/27/21 05:13 Est GFR (MDRD) Non-Af > 60 (>60) 08/27/21 05:13 Glucose 157 mg/dL (65-99) H 08/27/21 05:13 Hemoglobin A1c 5.5 % 08/22/21 12:46 Calcium 8.5 mg/dL (8.5-10.1) 08/27/21 05:13 Corrected Calcium 9.7 mg/dL (8.5-10.1) 08/26/21 05:07 Magnesium 2.1 mg/dL (1.7-2.9) 08/23/21 06:17 Total Bilirubin 0.10 mg/dL (0.2-1.0) L 08/26/21 05:07 AST 10 Units/L (15-37) L 08/26/21 05:07 ALT 20 Units/L (12-78) 08/26/21 05:07 Alkaline Phosphatase 45 Units/L (46-116) L 08/26/21 05:07 Total Protein 5.7 g/dL (6.4-8.2) L 08/26/21 05:07 Albumin 2.0 g/dL (3.4-5.0) L 08/26/21 05:07 Globulin 3.7 g/dL (2.5-4.5) 08/26/21 05:07 Albumin/Globulin Ratio 0.5 Ratio (1.1-2.1) L 08/26/21 05:07 Specimen Type Clean catch urine 08/23/21 09:15 Urine Color Yellow (YELLOW) 08/23/21 09:15 Urine Appearance Hazy (CLEAR) 08/23/21 09:15 Urine pH 5.0 (5.0 - 8.0) 08/23/21 09:15 Ur Specific [place] 1.025 (1.000-1.030) 08/23/21 09:15 Urine Protein 2+ (NEGATIVE) 08/23/21 09:15 Urine Glucose (UA) Negative (NEGATIVE) 08/23/21 09:15 Urine Ketones Negative (NEGATIVE) 08/23/21 09:15 Urine Occult Blood 2+ (NEGATIVE) 08/23/21 09:15 Urine Nitrite Negative (NEGATIVE) 08/23/21 09:15 Urine Bilirubin Negative (NEGATIVE) 08/23/21 09:15 Urine Urobilinogen Normal (NORMAL) 08/23/21 09:15 Ur Leukocyte Esterase 3+ (NEGATIVE) 08/23/21 09:15 Urine RBC 5-10 /HPF (0-3) A 08/23/21 09:15 Urine WBC 20-30 /HPF (0-5) A 08/23/21 09:15 Ur Squamous Epith Cells Few /HPF (NEGATIVE) 08/23/21 09:15 Ur Transition Epith Cell Rare /HPF (NEGATIVE) 08/23/21 09:15 Amorphous Sediment 1+ /HPF (NEGATIVE) 08/23/21 09:15 Urine Bacteria Trace /HPF (NEGATIVE) 08/23/21 09:15 Hyaline Casts Few /LPF (NEGATIVE) 08/23/21 09:15 Granular Casts Rare /LPF (NEGATIVE) 08/23/21 09:15 Urine Mucus Rare /HPF (NEGATIVE) 08/23/21 09:15 Ur Culture Indicated? Yes/culture set up 08/23/21 09:15 Stool Description 20g loose/muc red 08/24/21 07:51 Stl Occult Blood (IFOB) Positive (NEGATIVE) A 08/24/21 07:51 Vancomycin Trough 17.2 ug/mL (-) 08/26/21 19:58 SARS CoV-2 RNA Rapid VLADISLAV Negative (NEGATIVE) 08/22/21 13:19 Tissue Pathology To follow 08/25/21 13:57 Reason For Visit: CELLUITITIS RIGHT LOWER EXTERMITY Discharge Date Discharge Date: 08/27/21 Discharge Diagnosis All Active Problems (Updated 08/27/21 @ 17:39 by Luke Bingham) Colitis (Acute) Infectious fasciitis (Acute) Infection of bone of right ankle (Acute) Plan of Treatment: Continue with present treatment and follow up plan. Pt is to keep follow up appointment as instructed and take medications as ordered. Discharge Medications Discharge Medications: Penicillins Allergy (Verified 08/22/21 15:11) CONTINUE taking the following medications albuterol sulfate 2 puff INHALATION BID 08/25/21 [History] furosemide 20 mg PO DAILY PRN 08/25/21 [History] tramadol 50 mg PO TID PRN 08/25/21 [History] New Prescriptions methylprednisolone [Medrol (James)] 4 mg PO QAM #21 ea 08/27/21 [Rx] oxycodone-acetaminophen [Percocet] 1 tab PO Q6H PRN #30 tab MDD 6 08/27/21 [Rx] sulfamethoxazole-trimethoprim [Bactrim DS] 1 tab PO BID #20 tab 08/27/21 [Rx] Follow up and Referral Follow Up: Dr. Zachery Griffith 1 Week Discharge Disposition Assessment: See hospital course above Discharge Disposition: stable Discharge Condition: stable, good Discharge Plan Discharge Plan Hospital Course: This is a 61 year old female who presented with several day history of skin changes of the right medial leg at the ankle and above. She had been worked up for autoimmune problems which to this point have been negative. She was admitted and placed on IV antibiotics and taken to the operating room by the Podiatry service undergoing extensive debridement of the right leg with the wound measuring 12 x5x 0. 5 cm. She was continued on IV antibiotics and had a wound vacuum in place which was exchanged for wet to dry dressing is on August 25 in preparation for her to be discharged home. She had bright red blood and clots per rectum. Bowel prep and colonoscopy showed inflammation of the sigmoid colon with edema consistent with colitis. No obvious areas to suggest ulcerative colitis or Crohn's disease. Biopsies of this area are pending. Hemoglobin had been greater than 9 G on admission and dropped to 7 G on the day before discharge. It was observed and noted to be 7. 4 on the day of discharge, August 27 2021. She has been on iron and B-12 by mouth previously for workup of anemia. To be discharged home on PO Bactrim one p o BID x 10 days, a Medrol dose pack, and Percocet 5mg tablets, one every six hours. Pain, #30. Her family has been instructed on how to care for the wound with daily wet to dry dressings. She will follow up with me in 1 week. She will follow up with doctor Gladis in one week . She will need ongoing evaluation to determine if she has some type of inflammatory process or autoimmune process going on. Patient Disposition: HOME, SELF-CARE Condition: Stable Health Concerns: Post Hospitalization: new medications and changes needed to prevent readmission or further decline. Pt educated and given instructions on all concerns. Care Plan Goals: Problem: Infection Goal: Temperature within normal limits. Resolved infection. Instructions: Follow provided instructions. Follow up with primary physician as directed. Contact primary care physician or report to the closest Emergency Room if condition worsens. Plan of Treatment: Continue with present treatment and follow up plan. Pt is to keep follow up appointment as instructed and take medications as ordered. Assessment: See hospital course above Prescription drug monitoring program results: PDMP reviewed and no concerns identified Prescriptions: New sulfamethoxazole-trimethoprim [Bactrim DS] 800-160 mg tablet 1 tab PO BID Qty: 20 RF: 0 methylprednisolone [Medrol (James)] 4 mg tablets,dose pack 4 mg PO QAM Qty: 21 RF: 0 oxycodone-acetaminophen [Percocet] 5-325 mg tablet 1 tab PO Q6H MDD 6 PRNQty: 30 RF: 0 Continued albuterol sulfate 90 mcg/actuation HFA aerosol inhaler 2 puff INHALATION BID RF: 0 tramadol 50 mg tablet 50 mg PO TID PRNRF: 0 furosemide 20 mg tablet 20 mg PO DAILY PRN (Reason: SWELLING) RF: 0 Follow ups/Referrals Follow ups/Referrals: GUALBERTO LANZA [Primary Care Provider] - 3 days Luke Bingham [STAFF PHYSICIAN] - 1 WEEK Instructions Instructions: Fall Prevention in the Home, Adult, [id number], Anemia, Colonoscopy, Adult, Care After, [id number], Incision and Drainage, Care After, How to Change Your Wound Dressing, [id number], Upper Endoscopy, Care After, Diverticulosis Stand Alone Forms: Excuse From Work or School, Precautions for COVID19, [facility], Patient Portal, Social Distancing
== END 2021-08-27 18:45 | disposition home or self-care (01) | DRG 500 ==
LOC: ER 11:51 → MED/SURG 16:06 → ER 16:40
PROVIDERS: ADMIT Surgery; ATTEND Surgery
DX: K52.89 Other specified noninfective gastroenteritis and colitis; K57.32 Diverticulitis of large intestine without perforation or abscess without bleeding; L02.415 Cutaneous abscess of right lower limb; M72.6 Necrotizing fasciitis; K57.31 Diverticulosis of large intestine without perforation or abscess with bleeding; Z20.822 Contact with and (suspected) exposure to COVID-19